=== PATIENT | female | born 1980 | race Caucasian/White ===

== ENCOUNTER 2022-03-19 08:53 | Emergency (ER) | payer OTHER ==
[2022-03-19] MEDS ORDERED: Sodium Chloride 0.9% 10 ML Syringe FLUSH PRN (09:15)
[2022-03-19] MEDS ORDERED: Iopamidol 755 Mg/ML 100 ML Bottle IVPUSH ONE (10:15)
[2022-03-19 10:49] LABS: ANION GAP 13.5 mEq/L (7-13)
[2022-03-19] MEDS ORDERED: Iopamidol 612 MG/ML 100 ML Bottle IVPUSH ONE (11:26)
[2022-03-19] MEDS ORDERED: predniSONE 20 MG Tab PO ONE (12:21)
[2022-03-19] MEDS ORDERED: Ketorolac 30 MG/ML SDV IVPUSH ONE (12:29)
== END 2022-03-19 15:53 ==
LOC: DL.ED 08:53
DX: I31.3 Pericardial effusion (noninflammatory) (principal)
CPT/HCPCS: 36415; 71045; 71260; 80053; 81025; 83605; 83880; 84145; 84484; 85025; 85651; 86140; 87040; 93005; 96374; 99285; J1885; J3490; J7512; Q9967; 93010; 99283